=== PATIENT | male | born 1950 | race African-American/Black ===

== ENCOUNTER 2017-08-28 19:25 | Inpatient (IN) | payer OTHER ==
[~2017-08-28] VITALS: Ht 172.7 cm; Wt 72.3 kg
[~2017-08-28 19:25] MED LIST: ATOR10TA69 PO; COUMADIN; HYDR-4133 PO; ISOS5TAB4 PO
[2017-08-28 22:47] LABS: HEMATOCRIT. 43.2 % (42.0-52.0); HEMOGLOBIN. 14.1 g/dL (14.0-18.0); MEAN CORPUSCULAR HEMOGLOBIN 35.4 pg (28.0-32.0); MEAN CORPUSCULAR VOLUME 108.3 fL (80.0-94.0); MEAN PLATELET VOLUME 9.8 fl (7.4-10.4); PLATELET 240 x1000/uL (130-400); RED BLOOD CELL COUNT 3.99 mill/uL (4.7-6.1); RED CELL DISTRIBUTION WIDTH 20.1 % (11.6-14.6)
[2017-08-28 22:52] LABS: PROTHROMBIN TIME 31.3 sec (9.4-11.6)
[2017-08-28 22:58] LABS: CARBON DIOXIDE 28 mEq/L (21-32); CHLORIDE 91 mEq/L (98-107); TROPONIN I 0.03 ng/mL (0.00-0.04)
[2017-08-28] MEDS ORDERED: ACETAMINOPHEN 325MG TABLET PO ONE (23:00)
[2017-08-28 23:06] LABS: PLATELET ESTIMATE NORMAL
[2017-08-29] MEDS ORDERED: HYDROCODONE/ACETAMINOPHEN 5/325MG TABLET PO ONE (02:30)
[2017-08-29 07:06] VITALS: BP 101/58
[2017-08-29 07:34] VITALS: BP 101/58
[2017-08-29 08:00] VITALS: BP 90/40
[2017-08-29 12:00] VITALS: BP 110/50
[2017-08-29] MEDS ORDERED: ONDANSETRON HCL 4MG/2ML VIAL IV PRN (14:15)
[2017-08-29] MEDS ORDERED: MORPHINE SULFATE 2 MG/ML CPJ (NOT FOR IM USE) IV SCH (14:15)
[2017-08-29 16:00] VITALS: BP 90/45
[2017-08-29] MEDS ORDERED: MIDODRINE HCL 5MG TABLET PO NR (16:45)
[2017-08-29] MEDS ORDERED: BLOOD SUGAR DIAGNOSTIC STRIP TEST SCH ×2 (17:10→20:00)
[2017-08-29] MEDS: DEXT 5%/0.9% NACL 1,000 ML IV SCH (17:51)
[2017-08-29] MEDS ORDERED: DEXTROSE 50% WATER 50ML SYRINGE IV PRN (18:00)
[2017-08-29 20:00] VITALS: BP 90/42
[2017-08-29] MEDS: BLOOD SUGAR DIAGNOSTIC STRIP TEST SCH (21:33)
[2017-08-29] MEDS: MIDODRINE HCL 5MG TABLET PO SCH (21:39)
[2017-08-29] MEDS: INSULIN LISPRO 100 UNITS/ML SUBCUT SCH (21:40)
[2017-08-29] MEDS: HYDROCODONE/ACETAMINOPHEN 10/325MG TABLET PO PRN (21:43)
[2017-08-30] VITALS: BP 94/46
[2017-08-30 04:00] VITALS: BP 82/33
[2017-08-30] MEDS: MIDODRINE HCL 5MG TABLET PO SCH ×3 (06:23→21:09)
[2017-08-30] MEDS: BLOOD SUGAR DIAGNOSTIC STRIP TEST SCH ×4 (06:27→21:06)
[2017-08-30] MEDS: INSULIN LISPRO 100 UNITS/ML SUBCUT SCH ×4 (06:27→21:00)
[2017-08-30 06:46] LABS: PROTHROMBIN TIME 31.5 sec (9.4-11.6)
[2017-08-30 06:54] LABS: HEMATOCRIT. 40.5 % (42.0-52.0); MEAN CORPUSCULAR HEMOGLOBIN 34.9 pg (28.0-32.0); MEAN CORPUSCULAR VOLUME 108.5 fL (80.0-94.0); MEAN PLATELET VOLUME 10.6 fl (7.4-10.4); PLATELET 211 x1000/uL (130-400); RED BLOOD CELL COUNT 3.73 mill/uL (4.7-6.1); RED CELL DISTRIBUTION WIDTH 19.9 % (11.6-14.6)
[2017-08-30 08:00] VITALS: BP 91/51
[2017-08-30] MEDS ORDERED: BISACODYL 10MG SUPP PR PRN (10:15)
[2017-08-30] MEDS: HYDROCODONE/ACETAMINOPHEN 10/325MG TABLET PO PRN (10:29)
[2017-08-30] MEDS: DOCUSATE SODIUM 100MG CAPSULE PO SCH ×2 (10:30→16:58)
[2017-08-30 12:00] VITALS: BP 100/50
[2017-08-30] MEDS: DEXT 5%/0.9% NACL 1,000 ML IV SCH (13:28)
[2017-08-30 13:58] LABS: PLATELET ESTIMATE NORMAL
[2017-08-30 16:00] VITALS: BP 89/39
[2017-08-30 20:00] VITALS: BP 88/37
[2017-08-31] VITALS (7 sets, daily range): BP systolic 90–134; BP diastolic 28–106
[2017-08-31] MEDS: MIDODRINE HCL 5MG TABLET PO SCH ×3 (05:32→21:15)
[2017-08-31] MEDS: INSULIN LISPRO 100 UNITS/ML SUBCUT SCH ×4 (07:15→20:08)
[2017-08-31] MEDS: BLOOD SUGAR DIAGNOSTIC STRIP TEST SCH ×4 (07:15→20:08)
[2017-08-31 07:22] LABS: HEMATOCRIT. 33.3 % (42.0-52.0); HEMOGLOBIN. 10.8 g/dL (14.0-18.0); MEAN CORPUSCULAR HEMOGLOBIN 35.2 pg (28.0-32.0); MEAN CORPUSCULAR VOLUME 108.6 fL (80.0-94.0); MEAN PLATELET VOLUME 10.5 fl (7.4-10.4); PLATELET 179 x1000/uL (130-400); RED BLOOD CELL COUNT 3.07 mill/uL (4.7-6.1); RED CELL DISTRIBUTION WIDTH 19.9 % (11.6-14.6)
[2017-08-31] MEDS: DEXT 5%/0.9% NACL 1,000 ML IV SCH (08:16)
[2017-08-31] MEDS: DOCUSATE SODIUM 100MG CAPSULE PO SCH ×2 (08:16→16:10)
[2017-08-31 10:15] LABS: PLATELET ESTIMATE NORMAL
[2017-08-31] MEDS ORDERED: THROAT LOZENGES-BENZOCAINE/MENTH/CETYLPYRD CL LOZENGES MM PRN (10:45)
[2017-08-31] MEDS: HYDROCODONE/ACETAMINOPHEN 10/325MG TABLET PO PRN (12:08)
[2017-08-31] MEDS ORDERED: ACETAMINOPHEN 325MG TABLET PO PRN (20:00)
[2017-09-01 00:08] VITALS: BP 76/37
== END 2017-09-01 00:30 | disposition short-term general hospital (02) | DRG 438 ==
LOC: ER 19:53 → 8WST 08-29 03:29 → EDBEDREQTM 08-29 03:32 → EDBEDREQ 08-29 03:32 → ENRESERV 08-29 04:25
PROVIDERS: ADMIT Internal Medicine; ATTEND Internal Medicine
PROC: 5A1D70Z Performance of Urinary Filtration, Intermittent, Less than 6 Hours Per Day (ICD-10-PCS; principal; 2017-08-29)
PROC: 5A1D70Z Performance of Urinary Filtration, Intermittent, Less than 6 Hours Per Day (ICD-10-PCS; 2017-08-31)
DX: K85.90 Acute pancreatitis without necrosis or infection, unspecified (principal); N18.6 End stage renal disease; I13.2 Hypertensive heart and chronic kidney disease with heart failure and with stage 5 chronic kidney disease, or end stage renal disease; I95.9 Hypotension, unspecified; E11.22 Type 2 diabetes mellitus with diabetic chronic kidney disease; E87.5 Hyperkalemia; I50.40 Unspecified combined systolic (congestive) and diastolic (congestive) heart failure; Z83.3 Family history of diabetes mellitus; Z95.810 Presence of automatic (implantable) cardiac defibrillator; Z99.2 Dependence on renal dialysis; Z79.899 Other long term (current) drug therapy
CPT/HCPCS: 36415; 71010; 74176; 76700; 80048; 80051; 80053; 80076; 82150; 82248; 82962; 83036; 83690; 83735; 83880; 84132; 84478; 84484; 85025; 85610; 93005; 99285; J1815; J7030; J7042

== ENCOUNTER 2017-10-08 10:43 | Emergency (ER) | payer OTHER ==
[~2017-10-08] VITALS: Ht 172.7 cm; Wt 73.0 kg
[2017-10-08 15:40] VITALS: BP 108/53
== END 2017-10-08 15:55 | disposition home or self-care (01) ==
LOC: ER 12:06
DX: S90.811A Abrasion, right foot, initial encounter (principal); E11.9 Type 2 diabetes mellitus without complications; I50.9 Heart failure, unspecified; I25.10 Atherosclerotic heart disease of native coronary artery without angina pectoris; Z79.01 Long term (current) use of anticoagulants; X58.XXXA Exposure to other specified factors, initial encounter; Y93.89 Activity, other specified; Y92.89 Other specified places as the place of occurrence of the external cause; Y99.8 Other external cause status
CPT/HCPCS: 99283

== ENCOUNTER 2017-11-12 03:07 | Emergency (ER) | payer OTHER ==
[~2017-11-12] VITALS: Ht 172.7 cm; Wt 68.0 kg
[~2017-11-12 03:07] MED LIST changes: -COUMADIN; +COUMADIN PO
[2017-11-12 03:10] VITALS: BP 108/54
== END 2017-11-12 03:35 | disposition home or self-care (01) ==
LOC: ER 03:07
DX: R04.0 Epistaxis (principal); N18.6 End stage renal disease; E11.22 Type 2 diabetes mellitus with diabetic chronic kidney disease; K59.00 Constipation, unspecified; K85.90 Acute pancreatitis without necrosis or infection, unspecified; I50.9 Heart failure, unspecified; I25.10 Atherosclerotic heart disease of native coronary artery without angina pectoris; Z79.01 Long term (current) use of anticoagulants
CPT/HCPCS: 99283

== ENCOUNTER 2017-11-14 16:42 | Inpatient (IN) | payer OTHER ==
[~2017-11-14] VITALS: Ht 172.7 cm; Wt 59.4 kg
[2017-11-14 21:49] LABS: MEAN CORPUSCULAR HEMOGLOBIN 32.8 pg (28.0-32.0); MEAN CORPUSCULAR VOLUME 100.1 fL (80.0-94.0); PLATELET 152 x1000/uL (130-400); RED BLOOD CELL COUNT 1.74 mill/uL (4.7-6.1); RED CELL DISTRIBUTION WIDTH 15.3 % (11.6-14.6)
[2017-11-14 21:52] LABS: HEMATOCRIT. 17.4 % (42.0-52.0); HEMOGLOBIN. 5.7 g/dL (14.0-18.0)
[2017-11-14 21:55] LABS: CHLORIDE 93 mEq/L (98-107)
[2017-11-14 22:44] LABS: PLATELET ESTIMATE NORMAL
[2017-11-15] VITALS (10 sets, daily range): BP systolic 98–121; BP diastolic 40–85
[2017-11-15] MEDS ORDERED: HYDROCODONE/ACETAMINOPHEN 5/325MG TABLET PO PRN
[2017-11-15] MEDS ORDERED: ACETAMINOPHEN 325MG TABLET PO PRN
[2017-11-15] MEDS ORDERED: IPRATROPIUM/ALBUTEROL 0.5-3(2.5)MG/3ML NEB INH PRN
[2017-11-15] MEDS ORDERED: MAGNESIUM/ALUMINUM HYDROXIDE/SIMETHICONE 30ML UDC PO PRN
[2017-11-15] MEDS ORDERED: NA PHOS,M-B/NA PHOS,DI-BA ENEMA 118ML PR PRN
[2017-11-15] MEDS ORDERED: ACETAMINOPHEN 650MG/20.3ML UDC GT PRN
[2017-11-15] MEDS ORDERED: ONDANSETRON HCL 4MG/2ML VIAL IV PRN
[2017-11-15] MEDS ORDERED: GUAIFENESIN 200MG/10ML SUGAR FREE UDC PO PRN
[2017-11-15] MEDS ORDERED: DOCUSATE SODIUM 100MG CAPSULE PO PRN
[2017-11-15] MEDS ORDERED: DIPHENHYDRAMINE 50MG/ML VIAL IV PRN
[2017-11-15] MEDS ORDERED: ACETAMINOPHEN 650MG SUPP PR PRN
[2017-11-15] MEDS ORDERED: CLONIDINE 0.1MG TABLET PO PRN
[2017-11-15] MEDS ORDERED: DEXTROSE 50% WATER 50ML SYRINGE IV PRN
[2017-11-15] MEDS: SODIUM CHLORIDE 0.9% INJ 3ML FLUSH IVF SCH ×3 (06:18→21:27)
[2017-11-15 08:11] LABS: CHLORIDE 93 mEq/L (98-107)
[2017-11-15] MEDS: INSULIN LISPRO 100 UNITS/ML SUBCUT SCH ×4 (08:20→21:33)
[2017-11-15 08:21] LABS: HDL CHOLESTEROL 26 mg/dL (40-59); LDL CHOLESTEROL 53 mg/dL (5-100)
[2017-11-15 08:22] LABS: HEMOGLOBIN. 7.3 g/dL (14.0-18.0); MEAN CORPUSCULAR HEMOGLOBIN 32.1 pg (28.0-32.0); MEAN CORPUSCULAR VOLUME 96.8 fL (80.0-94.0); MEAN PLATELET VOLUME 9.9 fl (7.4-10.4); PLATELET 147 x1000/uL (130-400); RED BLOOD CELL COUNT 2.27 mill/uL (4.7-6.1); RED CELL DISTRIBUTION WIDTH 16.2 % (11.6-14.6)
[2017-11-15 08:55] LABS: PLATELET ESTIMATE NORMAL
[2017-11-15] MEDS: BLOOD SUGAR DIAGNOSTIC STRIP TEST SCH ×4 (09:00→21:27)
[2017-11-15] MEDS: PANTOPRAZOLE SODIUM 40 MG/VIAL IV SCH (10:46)
[2017-11-15] MEDS ORDERED: MIDO10TA PO (10:53)
[2017-11-15] MEDS ORDERED: CARV3.1242 PO (11:25)
[2017-11-15] MEDS ORDERED: NORT25CA PO (11:26)
[2017-11-15] MEDS ORDERED: LISI2.5T47 PO (11:32)
[2017-11-15] MEDS ORDERED: LEVO100T9 PO (11:32)
[2017-11-15] MEDS ORDERED: AMI2 PO (11:32)
[2017-11-15] MEDS ORDERED: SEVE800T8 PO (11:35)
[2017-11-15] MEDS ORDERED: CYAN250010 PO (11:35)
[2017-11-15] MEDS ORDERED: NEPVIT PO (11:36)
[2017-11-15] MEDS ORDERED: ATORVASTATIN CALCIUM 40MG TABLET PO SCH (21:00)
[2017-11-15] MEDS: CARVEDILOL 3.125 MG TABLET PO SCH (21:00)
[2017-11-15] MEDS ORDERED: NORTRIPTYLINE HCL 25MG CAPSULE PO SCH (21:00)
[2017-11-15] MEDS: FOLIC ACID/VITAMIN B COMP W-C TABLET PO SCH (21:26)
[2017-11-15] MEDS: AMIODARONE HCL 200 MG TABLET PO SCH (21:27)
[2017-11-15 21:30] LABS: HEMATOCRIT. 25.9 % (42.0-52.0); INR 1.7; MEAN CORPUSCULAR VOLUME 95.2 fL (80.0-94.0); MEAN PLATELET VOLUME 9.6 fl (7.4-10.4); PLATELET 151 x1000/uL (130-400); PROTHROMBIN TIME 17.7 sec (9.4-11.6); RED BLOOD CELL COUNT 2.72 mill/uL (4.7-6.1); RED CELL DISTRIBUTION WIDTH 16.4 % (11.6-14.6)
[2017-11-15] MEDS: HYDRALAZINE HCL 10MG TABLET PO SCH (21:34)
[2017-11-15 22:05] LABS: PLATELET ESTIMATE NORMAL
[2017-11-16 04:00] VITALS: BP 99/56
[2017-11-16] MEDS: HYDRALAZINE HCL 10MG TABLET PO SCH (05:04)
[2017-11-16] MEDS: BLOOD SUGAR DIAGNOSTIC STRIP TEST SCH (06:01)
[2017-11-16] MEDS: SODIUM CHLORIDE 0.9% INJ 3ML FLUSH IVF SCH (06:01)
[2017-11-16] MEDS: INSULIN LISPRO 100 UNITS/ML SUBCUT SCH (07:12)
[2017-11-16] MEDS ORDERED: LEVOTHYROXINE SODIUM 100MCG TABLET PO SCH (07:40)
[2017-11-16 08:00] VITALS: BP 96/51
[2017-11-16] MEDS: CARVEDILOL 3.125 MG TABLET PO SCH (08:01)
[2017-11-16] MEDS: FOLIC ACID/VITAMIN B COMP W-C TABLET PO SCH (08:01)
[2017-11-16] MEDS: PANTOPRAZOLE SODIUM 40 MG/VIAL IV SCH (08:01)
[2017-11-16] MEDS: AMIODARONE HCL 200 MG TABLET PO SCH (08:01)
[2017-11-16] MEDS ORDERED: SEVELAMER CARBONATE 800 MG TABLET PO SCH (08:10)
[2017-11-16] MEDS ORDERED: LISINOPRIL 2.5MG TABLET PO SCH (09:00)
[2017-11-16 09:20] VITALS: BP 96/51
== END 2017-11-16 10:40 | disposition home or self-care (01) | DRG 811 ==
LOC: ER 18:56 → 7WST 22:42 → ENRESERV 11-15 08:57
PROVIDERS: ADMIT Family Medicine; ATTEND Family Medicine
PROC: 30233N1 Transfusion of Nonautologous Red Blood Cells into Peripheral Vein, Percutaneous Approach (ICD-10-PCS; principal; 2017-11-15)
DX: D62 Acute posthemorrhagic anemia (principal); N18.6 End stage renal disease; I13.2 Hypertensive heart and chronic kidney disease with heart failure and with stage 5 chronic kidney disease, or end stage renal disease; E11.22 Type 2 diabetes mellitus with diabetic chronic kidney disease; I50.9 Heart failure, unspecified; K57.30 Diverticulosis of large intestine without perforation or abscess without bleeding; F41.9 Anxiety disorder, unspecified; I25.10 Atherosclerotic heart disease of native coronary artery without angina pectoris; Z79.899 Other long term (current) drug therapy
CPT/HCPCS: 36415; 36430; 71045; 80053; 80061; 82150; 82962; 83036; 83690; 85025; 85384; 85610; 85730; 86850; 86900; 86920; 93005; 99285; C9113; J1815; J7050; P9016

== ENCOUNTER 2018-03-10 11:45 | Inpatient (IN) | payer OTHER ==
[~2018-03-10] VITALS: Ht 172.7 cm; Wt 72.1 kg
[2018-03-10] VITALS (23 sets, daily range): BP systolic 83–162; BP diastolic 33–94
[~2018-03-10 11:45] MED LIST changes: +AMI2 PO; +CARV3.1242 PO; +CYAN250010 PO; +INSULIN REGULAR (HUMULIN R) 300UNITS/3ML SUBCUT ONE; +LEVO100T9 PO; +LISI2.5T47 PO; +MIDO10TA PO; +NEPVIT PO; +NORT25CA PO; +SEVE800T8 PO
[2018-03-10] MEDS ORDERED: CALCIUM GLUCONATE 1,000 MG in DEXTROSE 5% WATER 50 ML IV ONE (12:00)
[2018-03-10] MEDS ORDERED: CALCIUM CHLORIDE 1GM/10ML SYR IV ONE ×2 (12:15→16:00)
[2018-03-10 12:45] LABS: HEMATOCRIT. 48.3 % (42.0-52.0); HEMOGLOBIN. 15.8 g/dL (14.0-18.0); MEAN CORPUSCULAR HEMOGLOBIN 33.6 pg (28.0-32.0); MEAN CORPUSCULAR VOLUME 102.7 fL (80.0-94.0); PLATELET 274 x1000/uL (130-400); RED CELL DISTRIBUTION WIDTH 17.7 % (11.6-14.6)
[2018-03-10 12:46] LABS: CHLORIDE 91 mEq/L (98-107)
[2018-03-10 13:00] LABS: INR 8.4
[2018-03-10 13:11] LABS: PLATELET ESTIMATE NORMAL
[2018-03-10] MEDS ORDERED: DEXTROSE 50% WATER 50ML SYRINGE IV ONE (13:30)
[2018-03-10] MEDS ORDERED: SODIUM BICARBONATE 8.4% 1 MEQ/ML 50ML SYR IV ONE (13:30)
[2018-03-10] MEDS ORDERED: ACETAMINOPHEN 325MG TABLET PO PRN (15:00)
[2018-03-10] MEDS ORDERED: DIPHENHYDRAMINE 50MG/ML VIAL IV PRN (15:00)
[2018-03-10] MEDS ORDERED: DEXTROSE 50% WATER 50ML SYRINGE IV PRN (15:00)
[2018-03-10] MEDS ORDERED: ONDANSETRON HCL 4MG/2ML VIAL IV PRN (15:00)
[2018-03-10] MEDS ORDERED: PHYTONADIONE 10 MG in DEXTROSE 5% WATER 49 ML IV NR (16:30)
[2018-03-10] MEDS: BLOOD SUGAR DIAGNOSTIC STRIP TEST SCH ×2 (17:35→21:12)
[2018-03-10] MEDS: INSULIN LISPRO 100 UNITS/ML SUBCUT SCH ×2 (17:36→21:00)
[2018-03-10] MEDS ORDERED: WARF5TAB76 PO (18:34)
[2018-03-10] MEDS ORDERED: MIDODRINE HCL PO SCH (20:30)
[2018-03-10] MEDS: CARVEDILOL 3.125 MG TABLET PO SCH (21:00)
[2018-03-10] MEDS ORDERED: ATORVASTATIN CALCIUM 10MG TABLET PO SCH (21:00)
[2018-03-10] MEDS ORDERED: ATORVASTATIN CALCIUM 40MG TABLET PO SCH (22:20)
[2018-03-10] MEDS: ATORVASTATIN CALCIUM 40MG TABLET PO SCH (22:34)
[2018-03-10] MEDS: MIDODRINE HCL 10 MG TABLET PO SCH (22:34)
[2018-03-11] VITALS (76 sets, daily range): BP systolic 55–137; BP diastolic 33–70
[2018-03-11 06:05] LABS: INR 1.7; PROTHROMBIN TIME 17.3 sec (9.4-11.6)
[2018-03-11 06:09] LABS: HEMATOCRIT. 43.7 % (42.0-52.0); HEMOGLOBIN. 14.3 g/dL (14.0-18.0); MEAN CORPUSCULAR HEMOGLOBIN 33.7 pg (28.0-32.0); MEAN CORPUSCULAR VOLUME 102.9 fL (80.0-94.0); MEAN PLATELET VOLUME 10.2 fl (7.4-10.4); PLATELET 184 x1000/uL (130-400); RED BLOOD CELL COUNT 4.24 mill/uL (4.7-6.1); RED CELL DISTRIBUTION WIDTH 18.2 % (11.6-14.6)
[2018-03-11 06:52] LABS: PHOSPHORUS 8.7 mg/dL (2.5-4.9)
[2018-03-11] MEDS: BLOOD SUGAR DIAGNOSTIC STRIP TEST SCH ×4 (08:15→20:46)
[2018-03-11] MEDS: SEVELAMER CARBONATE 800 MG TABLET PO SCH ×4 (08:20→18:27)
[2018-03-11] MEDS: INSULIN LISPRO 100 UNITS/ML SUBCUT SCH ×4 (08:32→21:00)
[2018-03-11] MEDS: FOLIC ACID/VITAMIN B COMP W-C TABLET PO SCH (08:33)
[2018-03-11] MEDS: LEVOTHYROXINE SODIUM 100MCG TABLET PO SCH (08:33)
[2018-03-11] MEDS ORDERED: AMIODARONE HCL 200 MG TABLET PO SCH (09:00)
[2018-03-11] MEDS ORDERED: SODIUM POLYSTYRENE SULFONATE 15 G/60 ML BOT PO NR (09:30)
[2018-03-11 09:35] LABS: NUCLEATED RED BLOOD CELLS 1 /100 WBC
[2018-03-11 09:36] LABS: PLATELET ESTIMATE NORMAL
[2018-03-11] MEDS ORDERED: MIDODRINE HCL 5MG TABLET PO PRN (09:45)
[2018-03-11] MEDS: MIDODRINE HCL 10 MG TABLET PO SCH (11:34)
[2018-03-11 12:20] LABS: MEAN CORPUSCULAR HEMOGLOBIN 33.5 pg (28.0-32.0); MEAN CORPUSCULAR VOLUME 102.7 fL (80.0-94.0); MEAN PLATELET VOLUME 9.8 fl (7.4-10.4); PLATELET 177 x1000/uL (130-400); RED BLOOD CELL COUNT 4.19 mill/uL (4.7-6.1)
[2018-03-11 12:26] LABS: INR 1.2; PROTHROMBIN TIME 12.2 sec (9.4-11.6)
[2018-03-11 12:55] LABS: PLATELET ESTIMATE NORMAL
[2018-03-11] MEDS: CARVEDILOL 3.125 MG TABLET PO SCH ×3 (15:00→21:00)
[2018-03-11] MEDS: AMIODARONE HCL 200 MG TABLET PO SCH (18:00)
[2018-03-11] MEDS ORDERED: WARFARIN SODIUM 2.5MG TABLET PO NR (18:00)
[2018-03-11] MEDS: ATORVASTATIN CALCIUM 40MG TABLET PO SCH (20:57)
[2018-03-12] VITALS (33 sets, daily range): BP systolic 85–148; BP diastolic 39–109
[2018-03-12 05:25] LABS: HEMATOCRIT. 41.9 % (42.0-52.0); HEMOGLOBIN. 13.7 g/dL (14.0-18.0); MEAN CORPUSCULAR HEMOGLOBIN 33.5 pg (28.0-32.0); MEAN PLATELET VOLUME 10.4 fl (7.4-10.4); PLATELET 164 x1000/uL (130-400); RED BLOOD CELL COUNT 4.07 mill/uL (4.7-6.1); RED CELL DISTRIBUTION WIDTH 17.8 % (11.6-14.6)
[2018-03-12 05:29] LABS: INR 1.2; PROTHROMBIN TIME 12.5 sec (9.4-11.6)
[2018-03-12 05:40] LABS: CHLORIDE 96 mEq/L (98-107)
[2018-03-12 05:50] LABS: PHOSPHORUS 6.2 mg/dL (2.5-4.9)
[2018-03-12 05:52] LABS: CREATINE KINASE 229 IU/L (39-308)
[2018-03-12 05:55] LABS: CREATINE KINASE MB FRACTION 3.1 ng/mL (0.5-3.6)
[2018-03-12] MEDS: BLOOD SUGAR DIAGNOSTIC STRIP TEST SCH ×3 (08:12→17:21)
[2018-03-12] MEDS: CARVEDILOL 3.125 MG TABLET PO SCH ×2 (08:12→08:13)
[2018-03-12] MEDS: INSULIN LISPRO 100 UNITS/ML SUBCUT SCH ×3 (08:12→17:21)
[2018-03-12] MEDS: AMIODARONE HCL 200 MG TABLET PO SCH ×2 (08:16→10:22)
[2018-03-12] MEDS: LEVOTHYROXINE SODIUM 100MCG TABLET PO SCH (08:22)
[2018-03-12] MEDS: FOLIC ACID/VITAMIN B COMP W-C TABLET PO SCH (08:22)
[2018-03-12] MEDS: MIDODRINE HCL 10 MG TABLET PO SCH (09:00)
[2018-03-12 10:25] LABS: PLATELET ESTIMATE NORMAL
[2018-03-12] MEDS: SEVELAMER CARBONATE 800 MG TABLET PO SCH ×2 (12:43→17:22)
[2018-03-12] MEDS ORDERED: WARFARIN SODIUM 5MG TABLET PO SCH (18:00)
== END 2018-03-12 21:00 | disposition short-term general hospital (02) | DRG 291 ==
LOC: ER 11:55 → ENRESERV 15:24 → CVICU 16:37
PROVIDERS: ADMIT Internal Medicine; ATTEND Internal Medicine
PROC: 5A1D70Z Performance of Urinary Filtration, Intermittent, Less than 6 Hours Per Day (ICD-10-PCS; 2018-03-10)
PROC: 02HV33Z Insertion of Infusion Device into Superior Vena Cava, Percutaneous Approach (ICD-10-PCS; principal; 2018-03-11)
PROC: B548ZZA Ultrasonography of Superior Vena Cava, Guidance (ICD-10-PCS; 2018-03-11)
PROC: 5A1D70Z Performance of Urinary Filtration, Intermittent, Less than 6 Hours Per Day (ICD-10-PCS; 2018-03-11)
PROC: 5A1D70Z Performance of Urinary Filtration, Intermittent, Less than 6 Hours Per Day (ICD-10-PCS; 2018-03-12)
DX: I13.2 Hypertensive heart and chronic kidney disease with heart failure and with stage 5 chronic kidney disease, or end stage renal disease (principal); I50.23 Acute on chronic systolic (congestive) heart failure; N18.6 End stage renal disease; I48.92 Unspecified atrial flutter; E87.1 Hypo-osmolality and hyponatremia; I44.2 Atrioventricular block, complete; I42.0 Dilated cardiomyopathy; I25.10 Atherosclerotic heart disease of native coronary artery without angina pectoris; E11.22 Type 2 diabetes mellitus with diabetic chronic kidney disease; E83.39 Other disorders of phosphorus metabolism; E87.5 Hyperkalemia; E87.8 Other disorders of electrolyte and fluid balance, not elsewhere classified; D64.9 Anemia, unspecified; R00.1 Bradycardia, unspecified; E03.9 Hypothyroidism, unspecified; E78.00 Pure hypercholesterolemia, unspecified; E78.5 Hyperlipidemia, unspecified; I08.0 Rheumatic disorders of both mitral and aortic valves; I08.3 Combined rheumatic disorders of mitral, aortic and tricuspid valves; I27.20 Pulmonary hypertension, unspecified; I48.91 Unspecified atrial fibrillation; R79.1 Abnormal coagulation profile; I95.89 Other hypotension; M54.30 Sciatica, unspecified side; Z79.01 Long term (current) use of anticoagulants; Z79.4 Long term (current) use of insulin; Z86.74 Personal history of sudden cardiac arrest; Z87.891 Personal history of nicotine dependence; Z95.810 Presence of automatic (implantable) cardiac defibrillator; Z99.2 Dependence on renal dialysis; Z79.899 Other long term (current) drug therapy
CPT/HCPCS: 36415; 36556; 70450; 71045; 76937; 80048; 80053; 82550; 82553; 82962; 83735; 83880; 84100; 84132; 84443; 84484; 85025; 85610; 93005; 93306; 96365; 96372; 96375; 96376; 99291; C1752; J0610; J1815; J3430; J3490; J7030; J7050; J7060

== ENCOUNTER 2018-03-29 17:31 | Emergency (ER) | payer OTHER ==
[~2018-03-29] VITALS: Ht 172.7 cm; Wt 75.0 kg
[~2018-03-29 17:31] MED LIST changes: -COUMADIN PO; -INSULIN REGULAR (HUMULIN R) 300UNITS/3ML SUBCUT ONE; -NEPVIT PO; +WARF5TAB76 PO
[2018-03-29 23:07] LABS: INR 3.9; PROTHROMBIN TIME 41.1 sec (9.4-11.6)
[2018-03-29] MEDS ORDERED: PHYTONADIONE 5 MG/5ML ORAL SYRINGE PO ONE (23:45)
[2018-03-30] MEDS ORDERED: PHYTONADIONE 10MG/ML AMP PO SCH
[2018-03-30 00:08] LABS: HEMATOCRIT. 35.1 % (42.0-52.0); HEMOGLOBIN. 11.5 g/dL (14.0-18.0); MEAN CORPUSCULAR HEMOGLOBIN 33.7 pg (28.0-32.0); MEAN PLATELET VOLUME 9.3 fl (7.4-10.4); PLATELET 241 x1000/uL (130-400); RED BLOOD CELL COUNT 3.41 mill/uL (4.7-6.1); RED CELL DISTRIBUTION WIDTH 18.1 % (11.6-14.6)
[2018-03-30 00:15] LABS: CHLORIDE 90 mEq/L (98-107)
[2018-03-30 00:42] LABS: PLATELET ESTIMATE NORMAL
[2018-03-30] MEDS ORDERED: SODIUM CHLORIDE 0.9% 500 ML IV ONE (03:15)
[2018-03-30 05:43] VITALS: BP 115/55
== END 2018-03-30 06:11 | disposition short-term general hospital (02) ==
LOC: ER 21:18
DX: R79.1 Abnormal coagulation profile (principal); N18.6 End stage renal disease; K06.8 Other specified disorders of gingiva and edentulous alveolar ridge; I25.10 Atherosclerotic heart disease of native coronary artery without angina pectoris; J06.9 Acute upper respiratory infection, unspecified; E11.9 Type 2 diabetes mellitus without complications; K59.00 Constipation, unspecified; Z79.899 Other long term (current) drug therapy; Z87.440 Personal history of urinary (tract) infections; Z99.2 Dependence on renal dialysis
CPT/HCPCS: 36415; 71045; 80053; 84484; 85025; 85610; 93005; 99285; J3430; J7030; J7040

== ENCOUNTER 2018-09-04 02:05 | Inpatient (IN) | payer OTHER ==
[~2018-09-04] VITALS: Ht 172.7 cm; Wt 70.3 kg
[2018-09-04] VITALS (8 sets, daily range): BP systolic 90–131; BP diastolic 35–72
[2018-09-04] MEDS ORDERED: MORPHINE SULFATE 4 MG/ML CPJ (NOT FOR IM USE) IV STA (04:06)
[2018-09-04] MEDS ORDERED: ONDANSETRON HCL 4MG/2ML INJ IV STA (04:06)
[2018-09-04] MEDS ORDERED: ASPIRIN 81MG TABLET PO ONE (04:15)
[2018-09-04] MEDS ORDERED: MORPHINE SULFATE 10 MG/ML CPJ IV NR (04:30)
[2018-09-04 04:53] LABS: HEMATOCRIT. 29.9 % (42.0-52.0); HEMOGLOBIN. 9.7 g/dL (14.0-18.0); MEAN CORPUSCULAR HEMOGLOBIN 35.4 pg (28.0-32.0); MEAN CORPUSCULAR VOLUME 109.4 fL (80.0-94.0); MEAN PLATELET VOLUME 10.4 fl (7.4-10.4); PLATELET 237 x1000/uL (130-400); RED BLOOD CELL COUNT 2.74 mill/uL (4.7-6.1); RED CELL DISTRIBUTION WIDTH 16.8 % (11.6-14.6)
[2018-09-04 05:01] LABS: CHLORIDE 88 mEq/L (98-107)
[2018-09-04 05:16] LABS: PROTHROMBIN TIME > 100.0 sec (9.1-11.1)
[2018-09-04 05:17] LABS: INR > 10.0
[2018-09-04] MEDS ORDERED: CALCIUM CHLORIDE 1GM/10ML SYR IV ONE (05:30)
[2018-09-04] MEDS ORDERED: ALBUTEROL (0.083%) 2.5MG/3ML NEB HHN ONE (05:30)
[2018-09-04] MEDS ORDERED: INSULIN REGULAR (HUMULIN R) 300UNITS/3ML IV ONE (05:30)
[2018-09-04] MEDS ORDERED: SODIUM BICARBONATE 8.4% 1 MEQ/ML 50ML SYR IV ONE (05:30)
[2018-09-04 05:48] LABS: ATYPICAL LYMPHOCYTES 1; PLATELET ESTIMATE NORMAL
[2018-09-04] MEDS ORDERED: DEXTROSE 50% WATER 50ML SYRINGE IV ONE (06:00)
[2018-09-04] MEDS ORDERED: ACETAMINOPHEN 325MG TABLET PO PRN ×2 (06:45→07:30)
[2018-09-04] MEDS ORDERED: MAGNESIUM/ALUMINUM HYDROXIDE/SIMETHICONE 30ML UDC PO PRN (07:30)
[2018-09-04] MEDS ORDERED: TRAMADOL 50MG TABLET PO PRN (07:30)
[2018-09-04] MEDS ORDERED: DIPHENHYDRAMINE 50MG/ML VIAL IV PRN (07:30)
[2018-09-04] MEDS ORDERED: LORAZEPAM 0.5MG TABLET PO PRN (07:30)
[2018-09-04] MEDS ORDERED: IPRATROPIUM/ALBUTEROL 0.5-3(2.5)MG/3ML NEB INH PRN (07:30)
[2018-09-04] MEDS ORDERED: NA PHOS,M-B/NA PHOS,DI-BA ENEMA 118ML PR PRN (07:30)
[2018-09-04] MEDS ORDERED: GUAIFENESIN 200MG/10ML SUGAR FREE UDC PO PRN (07:30)
[2018-09-04] MEDS ORDERED: ONDANSETRON HCL 4MG/2ML INJ IV PRN (07:30)
[2018-09-04] MEDS ORDERED: CLONIDINE 0.1MG TABLET PO PRN (07:30)
[2018-09-04] MEDS ORDERED: ENOXAPARIN 40MG/0.4ML SYR SUBCUT SCH (07:30)
[2018-09-04] MEDS ORDERED: NITROGLYCERIN 0.4MG TABLET SL SL PRN (07:30)
[2018-09-04] MEDS ORDERED: DOCUSATE SODIUM 100MG CAPSULE PO PRN (07:30)
[2018-09-04] MEDS ORDERED: FAMOTIDINE 20MG TABLET PO SCH (09:00)
[2018-09-04] MEDS ORDERED: CARVEDILOL 3.125 MG TABLET PO SCH (09:00)
[2018-09-04] MEDS ORDERED: SORBITOL 70% SOLN 30ML PO NR (10:15)
[2018-09-04] MEDS ORDERED: MIDODRINE HCL 5MG TABLET PO SCH (10:43)
[2018-09-04] MEDS: FOLIC ACID/VITAMIN B COMP W-C TABLET PO SCH (11:10)
[2018-09-04] MEDS ORDERED: SEVELAMER CARBONATE 800 MG TABLET PO SCH (12:40)
[2018-09-04] MEDS: SEVELAMER CARBONATE 800 MG TABLET PO SCH ×2 (13:27→21:03)
[2018-09-04] MEDS ORDERED: PHYTONADIONE 5 MG/5ML ORAL SYRINGE PO ONE (16:30)
[2018-09-04 16:44] LABS: CREATINE KINASE MB FRACTION 4.9 ng/mL (0.5-3.6)
[2018-09-04] MEDS ORDERED: DEXTROSE 50% WATER 50ML SYRINGE IV PRN (20:15)
[2018-09-04] MEDS ORDERED: ZOLPIDEM TARTRATE 5MG TABLET PO PRN (21:00)
[2018-09-04] MEDS: INSULIN LISPRO 100 UNITS/ML SUBCUT SCH (21:00)
[2018-09-04] MEDS ORDERED: EPOETIN ALFA 10000UNITS/ML VIAL SUBCUT SCH (21:00)
[2018-09-04] MEDS: ATORVASTATIN CALCIUM 10MG TABLET PO SCH (21:03)
[2018-09-04] MEDS: NORTRIPTYLINE HCL 25MG CAPSULE PO SCH (21:03)
[2018-09-04] MEDS: LACTULOSE 20G/30ML UDC PO SCH (21:11)
[2018-09-04] MEDS: BLOOD SUGAR DIAGNOSTIC STRIP TEST SCH (21:24)
[2018-09-04 22:23] LABS: CREATINE KINASE MB FRACTION 5.1 ng/mL (0.5-3.6)
[2018-09-05] VITALS (12 sets, daily range): BP systolic 105–137; BP diastolic 45–72
[2018-09-05] MEDS: LACTULOSE 20G/30ML UDC PO SCH ×3 (06:00→22:00)
[2018-09-05 06:50] LABS: HEMATOCRIT. 29.7 % (42.0-52.0); HEMOGLOBIN. 9.5 g/dL (14.0-18.0); MEAN CORPUSCULAR HEMOGLOBIN 35.6 pg (28.0-32.0); MEAN CORPUSCULAR VOLUME 111.2 fL (80.0-94.0); MEAN PLATELET VOLUME 10.9 fl (7.4-10.4); PLATELET 194 x1000/uL (130-400); RED BLOOD CELL COUNT 2.67 mill/uL (4.7-6.1); RED CELL DISTRIBUTION WIDTH 16.4 % (11.6-14.6)
[2018-09-05 06:59] LABS: CHLORIDE 91 mEq/L (98-107)
[2018-09-05 07:05] LABS: PHOSPHORUS 6.3 mg/dL (2.5-4.9)
[2018-09-05] MEDS: BLOOD SUGAR DIAGNOSTIC STRIP TEST SCH ×3 (07:10→20:45)
[2018-09-05 07:17] LABS: PROTHROMBIN TIME > 100.0 sec (9.1-11.1)
[2018-09-05 07:22] LABS: INR > 10.0
[2018-09-05] MEDS: INSULIN LISPRO 100 UNITS/ML SUBCUT SCH ×3 (07:31→20:45)
[2018-09-05] MEDS: SEVELAMER CARBONATE 800 MG TABLET PO SCH ×3 (07:31→17:43)
[2018-09-05] MEDS: CYANOCOBALAMIN 1000MCG TABLET PO SCH ×2 (07:31→10:23)
[2018-09-05] MEDS: LEVOTHYROXINE SODIUM 100MCG TABLET PO SCH ×2 (07:32→10:22)
[2018-09-05] MEDS: DOCUSATE SODIUM 100MG CAPSULE PO SCH ×2 (09:00→17:43)
[2018-09-05 09:14] LABS: NUCLEATED RED BLOOD CELLS 2 /100 WBC; PLATELET ESTIMATE NORMAL
[2018-09-05] MEDS ORDERED: PHYTONADIONE 10MG/ML AMP SUBCUT SCH (10:00)
[2018-09-05] MEDS: FOLIC ACID/VITAMIN B COMP W-C TABLET PO SCH (10:22)
[2018-09-05] MEDS: AMIODARONE HCL 200 MG TABLET PO SCH (10:22)
[2018-09-05] MEDS ORDERED: SODIUM POLYSTYRENE SULFONATE 15 G/60 ML BOT PO SCH (14:00)
[2018-09-05] MEDS: NORTRIPTYLINE HCL 25MG CAPSULE PO SCH (20:41)
[2018-09-05] MEDS: ATORVASTATIN CALCIUM 10MG TABLET PO SCH (20:41)
[2018-09-06] VITALS (95 sets, daily range): BP systolic 31–126; BP diastolic 14–77
[2018-09-06] MEDS: LACTULOSE 20G/30ML UDC PO SCH ×3 (05:51→14:00)
[2018-09-06] MEDS: BLOOD SUGAR DIAGNOSTIC STRIP TEST SCH ×2 (06:45→11:34)
[2018-09-06] MEDS: INSULIN LISPRO 100 UNITS/ML SUBCUT SCH ×2 (06:45→12:10)
[2018-09-06] MEDS: SEVELAMER CARBONATE 800 MG TABLET PO SCH ×2 (07:40→11:35)
[2018-09-06] MEDS ORDERED: ALBUMIN HUMAN 25GM/100ML (25%) IV NR (08:15)
[2018-09-06] MEDS ORDERED: PHYTONADIONE 10MG/ML AMP IM NR (08:15)
[2018-09-06] MEDS ORDERED: EPINEPHRINE IV PRN (08:17)
[2018-09-06] MEDS ORDERED: DEXT 5% IV PRN (08:17)
[2018-09-06] MEDS ORDERED: WATER IV PRN (08:17)
[2018-09-06] MEDS ORDERED: LIDOCAINE HCL 1% 20ML VIAL (Pyxis) INJ ONE (08:36)
[2018-09-06] MEDS: PHENYLEPHRINE 40 MG in DEXT 5% WATER 246 ML IV PRN ×2 (08:37→12:20)
[2018-09-06 08:49] LABS: BG BASE EXCESS -22.9 mmol/L (-2.0-2.0); BG CARBOXYHEMOGLOBIN 0.2 % (0.5-1.5); BG DEOXYHEMOGLOBIN 15.5 % (0.0-5.0); BG FRACTION INSPIRED OXYGEN 100; BG METHEMOGLOBIN 0.5 % (0.0-1.5); BG OXYGEN SATURATION 84.4 % (92.0-98.5); BG OXYHEMOGLOBIN 83.8 % (94.0-97.0); BG PCO2 51.9 mmHg (35.0-45.0); BG PH 6.859 (7.350-7.450); BG PO2 87.9 mmHg (75.0-100.0); BG SAMPLE SITE LEFT FEMORAL; BG TIDAL VOLUME(mL) 600 mL; BG VENT MODE VENT - A/C; BG VENT RATE 14 set
[2018-09-06] MEDS: FOLIC ACID/VITAMIN B COMP W-C TABLET PO SCH (09:00)
[2018-09-06] MEDS: AMIODARONE HCL 200 MG TABLET PO SCH (09:00)
[2018-09-06] MEDS: DOCUSATE SODIUM 100MG CAPSULE PO SCH (09:00)
[2018-09-06] MEDS ORDERED: NOREPINEPHRINE 16 MG in DEXT 5% WATER 234 ML IV PRN (09:00)
[2018-09-06 09:09] LABS: HEMATOCRIT. 21.9 % (42.0-52.0); MEAN CORPUSCULAR HEMOGLOBIN 35.3 pg (28.0-32.0); MEAN CORPUSCULAR VOLUME 123.1 fL (80.0-94.0); PLATELET 137 x1000/uL (130-400); RED BLOOD CELL COUNT 1.78 mill/uL (4.7-6.1); RED CELL DISTRIBUTION WIDTH 18.1 % (11.6-14.6)
[2018-09-06 09:16] LABS: CHLORIDE 80 mEq/L (98-107)
[2018-09-06 09:23] LABS: PROTHROMBIN TIME 64.6 sec (9.1-11.1)
[2018-09-06 09:25] LABS: HEMOGLOBIN. 6.3 g/dL (14.0-18.0)
[2018-09-06 09:27] LABS: CREATINE KINASE 613 IU/L (39-308)
[2018-09-06 09:52] LABS: INR 6.6
[2018-09-06] MEDS ORDERED: HYDROCORTISONE SOD SUCCINATE 100 MG/2 ML VIAL IV SCH (10:00)
[2018-09-06] MEDS ORDERED: SODIUM BICARBONATE 8.4% 1 MEQ/ML 50ML SYR IV NR (10:15)
[2018-09-06 10:17] LABS: NUCLEATED RED BLOOD CELLS 7 /100 WBC; PLATELET ESTIMATE NORMAL
[2018-09-06 10:27] LABS: PHOSPHORUS 13.1 mg/dL (2.5-4.9)
[2018-09-06] MEDS: EPINEPHRINE 2 MG in SODIUM CHLORIDE 0.9% 248 ML IV PRN ×3 (10:42→13:11)
[2018-09-06] MEDS: DOPAMINE 800MG PREMIX (DOUBLE) 250 ML IV PRN ×2 (11:57→15:07)
[2018-09-06] MEDS ORDERED: VANCOMYCIN 1 G PREMIX 200 ML IV SCH (12:00)
[2018-09-06] MEDS ORDERED: PIPERACILLIN/TAZ 2.25G PREMIX 50 ML IV SCH (13:00)
[2018-09-06] MEDS ORDERED: VASOPRESSIN 10 UNIT in SODIUM CHLORIDE 0.9% 99.5 ML IV PRN (15:00)
[2018-09-06] MEDS ORDERED: CALCIUM CHLORIDE 1GM/10ML SYR IV ONE ×2 (15:34→15:44)
[2018-09-06] MEDS ORDERED: SODIUM BICARBONATE 8.4% 1 MEQ/ML 50ML SYR IV ONE (15:40)
[2018-09-06] MEDS ORDERED: DOPAMINE 400MG IN DEXT 5% 250ML PREMIX IV ONE (15:42)
[2018-09-06] MEDS ORDERED: SODIUM BICARBONATE 7.5% 0.9 MEQ/ML 50ML SYR IV ONE (15:44)
[2018-09-06] MEDS ORDERED: ATROPINE SULFATE 1MG/10ML SYR ONE (15:44)
[2018-09-06] MEDS ORDERED: EPINEPHRINE 0.1MG/ML (1:10,000) 10ML SYR ONE (15:44)
== END 2018-09-06 15:50 | disposition expired | DRG 208 ==
LOC: ER 02:05 → 8WST 05:48 → EDBEDREQTM 05:56 → EDBEDREQ 05:56 → ENRESERV 07:00 → MICUSO 09-06 08:06
PROVIDERS: ADMIT Internal Medicine; ATTEND Internal Medicine
PROC: 30233L1 Transfusion of Nonautologous Fresh Plasma into Peripheral Vein, Percutaneous Approach (ICD-10-PCS; 2018-09-05)
PROC: 30233K1 Transfusion of Nonautologous Frozen Plasma into Peripheral Vein, Percutaneous Approach (ICD-10-PCS; 2018-09-05)
PROC: 5A1935Z Respiratory Ventilation, Less than 24 Consecutive Hours (ICD-10-PCS; principal; 2018-09-06)
PROC: 30233N1 Transfusion of Nonautologous Red Blood Cells into Peripheral Vein, Percutaneous Approach (ICD-10-PCS; 2018-09-06)
PROC: 5A1D70Z Performance of Urinary Filtration, Intermittent, Less than 6 Hours Per Day (ICD-10-PCS; 2018-09-06)
PROC: 02H633Z Insertion of Infusion Device into Right Atrium, Percutaneous Approach (ICD-10-PCS; 2018-09-06)
PROC: B244ZZZ Ultrasonography of Right Heart (ICD-10-PCS; 2018-09-06)
PROC: 0BH18EZ Insertion of Endotracheal Airway into Trachea, Via Natural or Artificial Opening Endoscopic (ICD-10-PCS; 2018-09-06)
PROC: 5A12012 Performance of Cardiac Output, Single, Manual (ICD-10-PCS; 2018-09-06)
DX: J96.00 Acute respiratory failure, unspecified whether with hypoxia or hypercapnia (principal); K72.00 Acute and subacute hepatic failure without coma; N18.6 End stage renal disease; I13.2 Hypertensive heart and chronic kidney disease with heart failure and with stage 5 chronic kidney disease, or end stage renal disease; E87.1 Hypo-osmolality and hyponatremia; D68.9 Coagulation defect, unspecified; I42.9 Cardiomyopathy, unspecified; E87.5 Hyperkalemia; I50.9 Heart failure, unspecified; E83.51 Hypocalcemia; E78.00 Pure hypercholesterolemia, unspecified; D63.8 Anemia in other chronic diseases classified elsewhere; E78.5 Hyperlipidemia, unspecified; E03.9 Hypothyroidism, unspecified; K59.00 Constipation, unspecified; E11.21 Type 2 diabetes mellitus with diabetic nephropathy; E11.22 Type 2 diabetes mellitus with diabetic chronic kidney disease; I46.9 Cardiac arrest, cause unspecified; I95.89 Other hypotension; T45.515A Adverse effect of anticoagulants, initial encounter; M16.11 Unilateral primary osteoarthritis, right hip; Z82.49 Family history of ischemic heart disease and other diseases of the circulatory system; Z87.891 Personal history of nicotine dependence; Z95.810 Presence of automatic (implantable) cardiac defibrillator; Z99.2 Dependence on renal dialysis; Y92.89 Other specified places as the place of occurrence of the external cause
CPT/HCPCS: 36415; 36569; 36600; 71045; 74176; 76937; 82375; 82550; 82553; 82805; 82962; 83735; 83880; 84100; 84443; 84484; 85007; 85027; 86850; 86900; 86920; 86927; 93005; 93306; 93970; 94002; 96374; 96375; 99285; C1725; J0461; J0885; J1265; J1720; J1815; J2270; J2370; J2405; J2543; J3370; J3430; J3490; J7040; J7050; J7060; P9016; P9017; P9047